=== PATIENT | female | born 1960 | race Caucasian/White ===

== ENCOUNTER → 2019-10-03 14:07 | Outpatient (BNVA) | payer BC, SELFPAY | PROVIDERS: Family Provider Family Medicine; Visit Provider Family Medicine | DX: R30.0 Dysuria (principal); M10.9 Gout, unspecified; M25.50 Pain in unspecified joint | CPT/HCPCS: 80053; 81000; 84550; 87077; 87086; 87186 ==

== ENCOUNTER → 2019-10-07 08:30 | Outpatient (BNVA) | payer BC, SELFPAY | PROVIDERS: Family Provider Family Medicine; Visit Provider Family Medicine | DX: I10 Essential (primary) hypertension (principal); R73.03 Prediabetes; M25.50 Pain in unspecified joint; B37.3 Candidiasis of vulva and vagina; E11.9 Type 2 diabetes mellitus without complications | CPT/HCPCS: 80053; 80061; 83036; 85025; 85651; 86140; 86431 ==

== ENCOUNTER 2019-11-10 09:59 | Outpatient (CLI) | payer BC, SELFPAY ==
--- NOTE | 2019-11-10 10:05 | XR_ITS ---
WS: [id number] ABDOMEN 1 VIEW(S) HISTORY: concern for kidney stone COMPARISON: None available. Normal bowel gas pattern. No suspicious calcifications or masses. No bone abnormality. Degenerative spondylitic changes in the lumbar spine. Mild bilateral hip joint arthritis. XR/XR KUB [id number] IMPRESSION: No renal or ureteral calcifications identified.
== END 2019-11-10 10:00 | disposition home or self-care (01) ==
PROVIDERS: Family Provider Family Medicine; PCP Family Medicine; Visit Provider Family Medicine
DX: R10.9 Unspecified abdominal pain (principal)
CPT/HCPCS: 74018

== ENCOUNTER 2019-11-11 15:07 | Emergency (ER) | payer BC, SELFPAY ==
[2019-11-11 15:11] VITALS: BP 192/101; PULSE 70; RESP 18; TEMP 36.5; O2SAT 96; BMI 48.7
[2019-11-11 15:18] VITALS: PULSE 18; O2SAT 97
--- NOTE | 2019-11-11 15:19 | W.ED.ABDPA2 ---
HPI - Abdominal Pain General: Chief Complaint: Abdominal Pain Stated Complaint: R SIDE PAIN Time Seen by Provider: 11/11/19 15:19 Source: patient Mode of arrival: ambulatory Limitations: no limitations History of Present Illness: HPI narrative: Patient comes in today for complaints of right side abdominal pain since Thursday. Patient was diagnosed with a possible kidney stone on Thursday and was started on nitrofurantoin and tamsulosin. Patient reports no improvement in pain and discomfort and was seen by her primary care yesterday who sent her for a KUB that noted no renal calculi. Patient was placed on some hydrocodone for pain but has not had much relief with the pain today with taking the hydrocodone. Patient appears mildly unwell. Patient appears in some moderate discomfort. Associated Symptoms: Reports nausea Review of Systems General: Reports: 10 or more systems reviewed and unremarkable except in HPI and below GI: Reports: abdominal pain and nausea [facility] ED PFSH: Medical History (Updated 11/11/19 @ 17:30 by SERGEI Rivera) Anxiety and depression Essential hypertension Gout Prediabetes Surgical History History of tonsillectomy Family History Other Hypertension Sarcoma Social History Smoking and tobacco status: former smoker Alcohol intake: never Physical Exam Const: COMMON NORMALS: no acute distress and patient oriented x3 GENERAL APPEARANCE: cooperative HENMT: COMMON NORMALS: normocephalic and Normal external nose present HEAD & SCALP: normal to inspection and normocephalic NOSE: Normal external nose present MOUTH: Normal oral and palatal mucosa present THROAT: posterior oropharynx normal Eye: GENERAL EYE: appearance normal, both eyes and all related structures Neck/C-Spine: COMMON NORMALS: full ROM Lymph: LYMPHATIC: no lymphadenopathy noted Chest: COMMONS NORMALS: normal inspection of the chest Resp: COMMON NORMALS: normal respiratory effort EFFORT & INSPECTION: Yes able to speak in complete sentences Cardio: COMMON NORMALS: regular rate and regular rhythm RATE: regular rate RHYTHM: regular rhythm GI: COMMON NORMALS: Soft to palpation AUSCULTATION: Yes normoactive bowel sounds PALPATION: Yes Soft to palpation and Yes Tenderness to palpation present (GI) Details: RLQ : COMMON NORMALS: Yes no CVA tenderness BLADDER/KIDNEY EXAM: Yes no CVA tenderness Back/Pelvis: COMMON NORMALS: no CVA tenderness and thoracic and lumbar spine normal to inspection Extremity: COMMON NORMALS: normal to inspection Neuro: COMMON NORMALS: patient oriented x3 and moves all extremities Psych: COMMON NORMALS: mental status grossly normal and cooperative Skin: COMMON NORMALS: no rashes or lesions noted GENERAL SKIN EXAM: no rashes or lesions noted Course ED course: 1639, patient is back from CT scan and made complaints of increased pain and nausea. Patient had had 4 of morphine prior to going to CT and reported that it improved her pain but it has come back since returning from the CT scan. Patient appears well. Patient appears in no acute distress. Vital Signs: Vital signs: Vital Signs Temperature 97.7 F 11/11/19 15:11 Pulse Rate 18 L 11/11/19 15:18 Respiratory Rate 18 11/11/19 17:01 Blood Pressure 192/101 11/11/19 15:11 Pulse Oximetry 97 11/11/19 15:18 MDM - Abdominal Pain MDM Narrative: Medical decision making narrative: Patient comes in today for complaints of right lower abdominal pain. On exam patient has tenderness in the right lower abdomen. Patient reports that she has been diagnosed with a kidney stone but none was noted on the KUB yesterday so she is concerned that something else may be going on. Respirations were even and lungs are clear to auscultation. Bowel sounds were positive. Patient had tenderness on palpation to the right lower quadrant. Differential diagnosis includes cholecystitis, appendicitis, renal calculi, urinary tract infection. CBC and CMP were insignificant. EKG noted a sinus rhythm without any ST elevation. CT scan with contrast noted a normal appendix and no other signs of infection. It was noted though patient had a 3.5 mm stone at the UVJ of the ureter to bladder on the right side. Reviewed exam with patient recommended continued treatment for renal calculi. We will contact case management for referral to urology. Patient was reassured and was discharged home with ketorolac for further pain control and ondansetron for nausea and vomiting. Lab Data: Labs: Lab Results 11/11/19 11/11/19 Range/Units 15:56 15:56 WBC 9.1 (4.0-10.0) 10^3/ uL RBC 4.96 (4.1-5.3) 10^6/u L Hgb 14.7 (11.5-15.3) g/dL Hct 45.6 (37.0-47.0) % MCV 91.9 (81-99) fL MCH 29.6 (28.0-34.0) pg MCHC 32.2 (30.0-36.0) g/dL RDW 13.2 (12.1-15.1) % Plt Count 229 (130-400) 10^3/c mm MPV 9.0 (7.4-10.4) fL Neut % (Auto) 77.8 % Lymph % (Auto) 11.5 % [place] % (Auto) 7.6 % Eos % (Auto) 2.6 % Baso % (Auto) 0.2 % Neut # (Auto) 7.1 (1.8-7.7) 10^3/u L Lymph # (Auto) 1.0 (0.8-4.8) 10^3/u L [place] # (Auto) 0.7 (0.2-0.9) 10^3/u L Eos # (Auto) 0.2 (0.0-0.8) 10^3/u L Baso # (Auto) 0.0 (0.0-0.1) 10^3/u L Nucleated RBC % (a uto) 0 % Nucleated RBCs # 0.0 /100WBC Sodium 137 (136-145) mmol/L Potassium 4.6 (3.5-5.1) mmol/L Chloride 98 (98-107) mmol/L Carbon Dioxide 26 (22-29) mmol/L Anion Gap 17.6 (5-19) BUN 17 (6-20) mg/dL Creatinine 1.0 H (0.5-0.9) mg/dL GFR Calculation 57.1 L (90-130) mL/min Glucose 111 (65-115) mg/dL Calculated Osmolal ity 281 L (285-295) mOsm/k g Calcium 9.4 (8.5-10.5) mg/dL Total Bilirubin 0.5 (0.15-1.2) mg/dL AST 22 (0-32) U/L ALT 21 (0-33) U/L Alkaline Phosphata se 88 (35-105) IU/L Total Protein 7.8 (6.6-8.7) g/dL Albumin 4.3 (3.5-5.2) g/dL Globulin 3.5 (1.3-4.6) g/dL Lipase 37 (13-60) U/L Discharge Plan Discharge Patient Disposition: Home, Self-Care Clinical Impression: Calculus of kidney Condition: Stable Prescriptions: New ketorolac 10 mg tablet 10 mg PO Q6H PRN (Reason: pain) Qty: 14 RF: 0 ondansetron HCl 4 mg tablet 4 mg PO Q8H PRN (Reason: nausea and vomiting) Qty: 10 RF: 0 No Action fluoxetine 40 mg capsule 40 mg PO DAILY Qty: 90 RF: 0 fluoxetine 20 mg capsule 20 mg PO DAILY Qty: 90 RF: 0 metformin 500 mg tablet extended release 24 hr 500 mg PO BID Qty: 180 RF: 0 carvedilol 25 mg tablet 25 mg PO BID Qty: 180 RF: 0 lisinopril 20 mg tablet 20 mg PO DAILY Qty: 90 RF: 0 tamsulosin [Flomax] 0.4 mg capsule 0.4 mg PO DAILY RF: 0 nitrofurantoin macrocrystal 100 mg capsule 100 mg PO BID RF: 0 hydrocodone-acetaminophen [[place]] 5-325 mg tablet 1 tab PO Q6H PRN (Reason: pain) 7 Days Qty: 28 RF: 0 allopurinol 100 mg tablet 100 mg PO DAILY Qty: 90 RF: 1 Discharge Orders: Discharge Order (Routine); Ordered 11/11/19 Ordered By: Aniket May Referrals: Crissy Howell DO [Primary Care Provider] - Discharge Diet: Usual diet Discharge Activity: Increase activity as tolerated Patient Instructions: Kidney Stones (ED) Activity Restrictions/Additional Instructions: Drink plenty of fluids. Activity as tolerated. Take medications as needed for pain and nausea. Monitor for fever. Return to the ER for high fever or worsening pain. Follow-up with primary care in 1 week. Case management will contact you on Thursday for urology follow-up. Coding Level of Care Code ED Water Taxi Captain for Stormy Fwd Exam Comprehensive
--- NOTE | 2019-11-11 15:48 | CTR_ITS ---
PROCEDURE INFORMATION: Exam: CT Abdomen And Pelvis With Contrast Exam date and time: 11/11/2019 4:23 PM Age: 58 years old Clinical indication: Abdominal pain; Localized; Right lower quadrant (rlq); Patient HX: C/O rlq/r flank pain since 11/06; Additional info: Rlq pain TECHNIQUE: Imaging protocol: Computed tomography of the abdomen and pelvis with intravenous contrast. Radiation optimization: All CT scans at this facility use at least one of these dose optimization techniques: automated exposure control; mA and/or kV adjustment per patient size (includes targeted exams where dose is matched to clinical indication); or iterative reconstruction. Contrast material: OMNI 300; Contrast volume: 95 ml; Contrast route: 20G; COMPARISON: CR XR KUB [id number] 11/10/2019 10:12 AM RADIATION DOSE METRICS: Total DLP: 1957.82 mGy-cm FINDINGS: Mediastinal space: A small hiatal hernia is present. Liver: Unremarkable.No mass. Gallbladder and bile ducts: Normal. No calcified stones. No ductal dilation. Pancreas: Normal. No ductal dilation. Spleen: Normal. No splenomegaly. Adrenals: Normal. No mass. Kidneys and ureters: There is mild to moderate right hydronephrosis. There is a 3.5 mm calculus right ureteral vesicle junction. No left hydronephrosis. There is punctate left nephrolithiasis. There is mild right perinephric fat stranding. Stomach and bowel: There is no evidence of intestinal perforation or obstruction. There is no evidence of colitis/diverticulitis. Appendix: A normal appendix is identified. Intraperitoneal space: Unremarkable. No free air. No significant fluid collection. Vasculature: Unremarkable.No abdominal aortic aneurysm. Lymph nodes: Unremarkable.No enlarged lymph nodes. Bladder: There is nonspecific bladder wall thickening. This may be related to incomplete distention. Reproductive: Uterus, ovaries and adnexa have an appropriate appearance. Bones/joints: There are moderate degenerative changes in the spine. There is a vacuum disc at L5-S1. Soft tissues: There is a fat-containing umbilical hernia. CT/CT abdomen pelvis w con* [id number] IMPRESSION: 1. Mild to moderate right hydronephrosis with 3.5 mm calculus at the right ureteral vesicle junction. 2. No bowel thickening or inflammatory changes. Unremarkable appendix. Radiation Dose CTDIVOL = (mGy): DLP = 1957.82 (mGy-cm)
[2019-11-11] MEDS: ondansetron 2 mg/ML SDV 2 mL 4 MG IVP ×2 (15:56→17:01)
[2019-11-11 15:57] VITALS: RESP 18
[2019-11-11] MEDS: morphine 4 mg/mL SDV 1 mL IVP ×2 (15:57→17:01)
[2019-11-11] MEDS: sodium chloride 0.9% 500 ML 999 ML IV (15:57)
[2019-11-11 16:03] LABS: Basophils % 0.2 %; Eosinophils # 0.2 10^3/uL (0.0-0.8); Eosinophils % 2.6 %; Hematocrit 45.6 % (37.0-47.0); Hemoglobin 14.7 g/dL (11.5-15.3); Lymphocytes % 11.5 %; Mean Corpuscular HGB Conc 32.2 g/dL (30.0-36.0); Mean Corpuscular Hemoglobin 29.6 pg (28.0-34.0); Mean Corpuscular Volume 91.9 fL (81-99); Monocytes # 0.7 10^3/uL (0.2-0.9); Monocytes % 7.6 %; Neutrophils # 7.1 10^3/uL (1.8-7.7); Neutrophils % 77.8 %; Nucleated Red Blood Cells % 0 %; Platelet Count 229 10^3/cmm (130-400); Red Blood Count 4.96 10^6/uL (4.1-5.3); Red Cell Distribution Width 13.2 % (12.1-15.1); White Blood Count 9.1 10^3/uL (4.0-10.0)
[2019-11-11] MEDS: iohexol 300 mg/mL 100 mL Btl IV (16:30)
--- NOTE | 2019-11-11 16:46 | ECG_ITS ---
Measurements Intervals [place] Rate: 128 P: GA: 0 QRS: 52 QRSD: 84 T: 12 QT: 299 QTc: 438 ATRIAL FIBRILLATION WITH RAPID VENTRICULAR RESPONSE ABNORMAL RHYTHM ECG No previous ECG available for comparison Electronically Signed On 11-12-2019 8:04:33 CDT by Alyse Gottlieb M.D. [email or web address]
[2019-11-11 17:01] VITALS: RESP 18
[2019-11-11] MEDS: ketorolac 30 mg/mL INJ 15 MG IVP (17:01)
[2019-11-11 17:25] LABS: Alanine Aminotransferase 21 U/L (0-33); Albumin Level 4.3 g/dL (3.5-5.2); Alkaline Phosphatase 88 IU/L (35-105); Anion Gap 17.6 (5-19); Aspartate Amino Transferase 22 U/L (0-32); Blood Urea Nitrogen 17 mg/dL (6-20); Calcium 9.4 mg/dL (8.5-10.5); Carbon Dioxide 26 mmol/L (22-29); Chloride 98 mmol/L (98-107); Globulin 3.5 g/dL (1.3-4.6); Glomerular Filtration Rate 57.1 mL/min (90-130); Glucose 111 mg/dL (65-115); Lipase 37 U/L (13-60); Osmolality Calculated 281 mOsm/kg (285-295); Potassium 4.6 mmol/L (3.5-5.1); Sodium 137 mmol/L (136-145); Total Bilirubin 0.5 mg/dL (0.15-1.2); Total Protein 7.8 g/dL (6.6-8.7)
[2019-11-11 17:37] VITALS: BP 148/74; PULSE 69; RESP 18; O2SAT 94
[2019-11-11 17:42] LABS: Troponin(5th) Baseline 10 ng/L (0-10)
--- NOTE | 2019-11-14 10:55 | DCPLANNER ---
water/wastewater project manager had message to schedule a follow up appointment for patient with Dr. Landaverde. water/wastewater project manager called the office of Dr. Landaverde, spoke with Kathrin, gave clinic patients information. water/wastewater project manager was told that patients information would be printed and given to Jeanine for review. Clinic will call patient with appointment information.
--- NOTE | 2019-11-18 15:25 | DCPLANNER ---
Patient had a follow up appointment scheduled for 11.15.19, patient did attend the appointment.
== END 2019-11-11 17:37 | disposition home or self-care (01) ==
PROVIDERS: Emergency Provider Nurse Practitioner Family; Family Provider Family Medicine; PCP Family Medicine
DX: N20.0 Calculus of kidney (principal); I10 Essential (primary) hypertension; Z87.891 Personal history of nicotine dependence
CPT/HCPCS: 12345; 74177; 80053; 83690; 84484; 85025; 93005; 96374; 96375; 96376; 99283; J1885; J2270; J2405; J7040; Q9967

== ENCOUNTER 2019-11-15 07:47 | Outpatient (CLI) | payer BC, SELFPAY ==
--- NOTE | 2019-11-15 07:53 | XR_ITS ---
WS: [id number] ABDOMEN 1 VIEW(S) HISTORY: Stones COMPARISON: 11/11/2019 and 11/10/2019 Normal bowel gas pattern. There are numerous calcifications in the pelvis. Distribution and number are similar to the radiograp h of 11/10/2019. Advanced changes of osteophytosis throughout the lumbar spine. Bilateral hip joint arthritis. XR/XR KUB [id number] IMPRESSION: 1. Numerous calcifications in the pelvis. Distribution and number are similar to 11/10/2019. These are probably phleboliths but one of these calcifications cou ld be the calcification described in the distal RIGHT ureter on the CT of 020. 2. No renal calcifications.
== END 2019-11-15 07:48 | disposition home or self-care (01) ==
LOC: RAD 07:50
PROVIDERS: Family Provider Family Medicine; PCP Family Medicine; Visit Provider Urology
DX: N20.0 Calculus of kidney (principal)
CPT/HCPCS: 74018; 81001; 82365

== ENCOUNTER → 2020-01-11 11:19 | Outpatient (BNVA) | payer BC, SELFPAY | PROVIDERS: Family Provider Family Medicine; PCP Family Medicine; Visit Provider Family Medicine | DX: I10 Essential (primary) hypertension (principal) | CPT/HCPCS: 80048; 82043 ==

== ENCOUNTER → 2020-07-10 09:09 | Outpatient (BNVA) | payer BC, SELFPAY | PROVIDERS: Family Provider Family Medicine; PCP Family Medicine; Visit Provider Family Medicine | DX: I10 Essential (primary) hypertension (principal); R73.03 Prediabetes; K21.9 Gastro-esophageal reflux disease without esophagitis; R23.2 Flushing | CPT/HCPCS: 80053; 80061; 83036; 84443; 85025 ==

== ENCOUNTER 2020-11-14 08:06 | Outpatient (CLI) | payer BC, SELFPAY ==
--- NOTE | 2020-11-14 08:15 | XR_ITS ---
WS: [id number] KUB, AP view, 11/14/2020 Clinical Data: N20.0 - Calculus of kidney Comparison: KUB, 11/15/2019. Findings: No abnormal intraabdominal masses or calcifications are seen. There is no dilatated small bowel or ev idence of obstruction. There is fecal material in colon gas obscuring detail over the kidneys. There is severe osteoarthriti c change of the lumbar spine. Multiple phleboliths are in the true pelvis. Osteoarthritic change of b oth hips is seen. XR/XR KUB [id number] Impression: 1. Negative for renal calcifications. 2. No change in pelvic calcifications.
== END 2020-11-14 08:07 | disposition home or self-care (01) ==
PROVIDERS: PCP Family Medicine; Visit Provider Urology
DX: N20.0 Calculus of kidney (principal)
CPT/HCPCS: 74018; 81003

== ENCOUNTER → 2021-04-09 10:23 | Outpatient (BNVA) | payer BC, SELFPAY | PROVIDERS: PCP Family Medicine; Visit Provider Family Medicine | DX: I10 Essential (primary) hypertension (principal); M10.9 Gout, unspecified; F41.9 Anxiety disorder, unspecified; Z12.11 Encounter for screening for malignant neoplasm of colon; F32.9 Major depressive disorder, single episode, unspecified; M25.50 Pain in unspecified joint | CPT/HCPCS: 80053; 80061; 82043; 84550; 85025 ==

== ENCOUNTER → 2021-06-17 16:47 | Outpatient (BNVA) | payer BC, SELFPAY | PROVIDERS: PCP Family Medicine; Visit Provider Surgery | DX: Z01.812 Encounter for preprocedural laboratory examination (principal); Z20.822 Contact with and (suspected) exposure to COVID-19 | CPT/HCPCS: 87635 ==

== ENCOUNTER 2021-06-28 14:18 | Outpatient (CLI) | payer BC, SELFPAY ==
--- NOTE | 2021-06-28 14:30 | MM_ITS ---
WS: [id number] Exam: [place] [id number] Date/Time of Exam: 06/28/2021 2:31 PM Reason For Exam: mammogram VIEWS: MLO and CC views both breasts. Comparison made with prior exam of 09/10/2016, 03/02/2019 and 08/14/2015 Findings: There was no sign of mass, architectural distortion or suspicious calcification in either breast. Fa [place]ty MM/[place] [id number] Impression: BI-RADS: 2-Benign FOLLOW-UP: 1 Year Follow-up This mammogram was also analyzed by the Computer Aided Detection System R2 Imag e Esthetician Permanent Makeup Artist.
== END 2021-06-28 14:19 | disposition home or self-care (01) ==
LOC: RADSHAW 14:22
PROVIDERS: PCP Family Medicine; Visit Provider Family Medicine
DX: Z12.31 Encounter for screening mammogram for malignant neoplasm of breast (principal)
CPT/HCPCS: 77067

== ENCOUNTER → 2021-07-19 07:59 | Outpatient (BNVA) | payer BC, SELFPAY | PROVIDERS: PCP Family Medicine; Visit Provider Surgery | DX: Z20.822 Contact with and (suspected) exposure to COVID-19 (principal); Z11.52 Encounter for screening for COVID-19 | CPT/HCPCS: 87635 ==

== ENCOUNTER 2021-07-24 06:49 | Day surgery (SDC) | payer BC, SELFPAY ==
[2021-07-18 08:58] VITALS: BMI 39.9
--- NOTE | 2021-07-24 07:01 | W.PM.OPSFHP ---
Same Day Surgery H&P Indication for Procedure/HPI DATE OF PROCEDURE: July 24, 2021 CHIEF COMPLAINT/INDICATIONFOR SURGICAL PROCEDURE: screening PREOP DIAGNOSIS: diagnostic PLANNED PROCEDURE: Operation Date: 07/24/21 08:00 Proposed Procedures p Colonoscopy 24405 Z12.11(Not Applicable) - Vin Salter MD Medications/Allergies* Home Medications Medication Instructions Recorded Confirmed Type multivitamin,[id number] 1 tab PO DAILY 11/15/19 07/18/21 History (Complete Multivitamin) magnesium 250 mg tablet 250 mg PO DAILY 01/11/20 07/18/21 History biotin 5,000 mcg disintegrating 10,000 mcg PO DAILY 11/14/20 07/18/21 History tablet niacin 100 mg tablet 100 mg PO DAILY 11/14/20 07/18/21 History cetirizine 10 mg capsule (Zyrtec) 10 mg PO DAILY PRN 04/09/21 07/18/21 History aspirin 81 mg capsule 81 mg PO DAILY 06/17/21 07/18/21 History Allergies/Adverse Reactions Allergy/AdvReac Type Severity Reaction Status Date / Time sulfamethoxazole AdvReac Mild Unknown Verified 07/19/21 11:13 [From Bactrim] trimethoprim [From Bactrim] AdvReac Mild Unknown Verified 07/19/21 11:13 Pertinent History/Comorbid Conditions* Medical History (Updated 04/09/21 @ 10:03 by Crissy Howell DO) Anxiety and depression Essential hypertension Gout Prediabetes Right distal ureteral calculus Surgical History (Updated 01/11/20 @ 10:57 by Crissy Howell DO) H/O: knee surgery History of tonsillectomy Family History (Updated 09/07/19 @ 10:10 by Mickie Pike LPN) Sarcoma Hypertension Social History Smoking and tobacco status: former smoker Alcohol intake: never Marital status: Current occupational status: retired History of recent travel: No Pertinent Exam Findings alert, oriented x 3 and regular rate & rhythm Recommendations Surgery/Procedure today Coding Level of Care Code Acute Parking Enforcement Officer for Stormy Weaver
--- NOTE | 2021-07-24 07:28 | ANES.PREANE2 ---
Pre-Anesthetic Assessment Height/Weight: Height 1.75 m Weight 122.47 kg Preop Diagnosis: diagnostic Operation Date: 07/24/21 08:00 Proposed Procedures p Colonoscopy 19316 Z12.11(Not Applicable) - Vin Salter MD Familial anesthetic complications: None Was Beta Yamilka taken within 24 hours: Yes Was Clonidine taken within 24 hours: N/A Social No alcohol and No tobacco Exam alert, oriented x 3, clear to auscultation bilaterally and regular rate & rhythm Airway Submandibular: within normal limits Cervical ROM: Other (Limited extension) Mallampati: Class III Dentition: full History/ROS No significant complaints Pulmonary None reported CV/HEM Hypertension Hepatic None reported Ureteral calculus GI Gastroesophageal Reflux Disease and None reported Metabolic Pre diabetes Musc/skel Gout Neuropsych Anxiety and Depression Anesthetic Plan ASA status: 2 Anesthesia: Anesthesia Evaluation and General Other: I discussed with the patient risks, goals, and benefits of MAC and general anesthesia. We discussed spectrum of MAC anesthesia including conversion to general as well as possibility of recall of intraoperative stimuli including discomfort/pain. Patient agrees to proceed with MAC. Risk of > 500 ml blood loss (7ml/kg in children): No Medications/Allergies Home Medications Medication Instructions Recorded Confirmed Last Taken Type multivitamin,zx-kuex-yuhocvjq 1 tab PO DAILY 11/15/19 07/18/21 07/18/21 History (Complete Multivitamin) magnesium 250 mg tablet 250 mg PO DAILY 01/11/20 07/18/21 07/18/21 History biotin 5,000 mcg disintegrating 10,000 mcg PO DAILY 11/14/20 07/18/21 07/18/21 History tablet niacin 100 mg tablet 100 mg PO DAILY 11/14/20 07/18/21 07/18/21 History omeprazole 40 mg capsule,delayed 40 mg PO DAILY #90 cap 03/19/21 07/18/21 07/18/21 Rx release allopurinol 100 mg tablet See Rx Instructions .ROUTE 04/09/21 07/18/21 07/18/21 Rx .COMPLEX #90 tab cetirizine 10 mg capsule (Zyrtec) 10 mg PO DAILY PRN 04/09/21 07/18/21 07/18/21 History fluoxetine 20 mg capsule 20 mg PO BEDTIME #90 cap 04/09/21 07/18/21 07/17/21 Rx fluoxetine 40 mg capsule 40 mg PO DAILY #90 cap 04/09/21 07/18/21 07/18/21 Rx lisinopril 40 mg tablet 40 mg PO DAILY #90 tab 04/09/21 07/18/21 07/18/21 Rx aspirin 81 mg capsule 81 mg PO DAILY 06/17/21 07/18/21 07/18/21 History carvedilol 25 mg tablet See Rx Instructions .ROUTE 06/24/21 07/18/21 07/18/21 Rx .COMPLEX #145 tab Allergies Allergy/AdvReac Type Severity Reaction Status Date / Time sulfamethoxazole AdvReac Mild Unknown Verified 07/19/21 11:13 [From Bactrim] trimethoprim [From Bactrim] AdvReac Mild Unknown Verified 07/19/21 11:13 [facility] Anesthesia Medical History Anxiety and depression Essential hypertension Gout Prediabetes Right distal ureteral calculus Surgical History H/O: knee surgery History of tonsillectomy Family History Other Hypertension Sarcoma Social History Smoking and tobacco status: former smoker Alcohol intake: never Marital status: Current occupational status: retired History of recent travel: No Data Anesthesia Cardiac Studies: No Data to Display
[2021-07-24 07:41] VITALS: BP 180/104; PULSE 68; RESP 18; TEMP 36.2; O2SAT 96
[2021-07-24] MEDS: sodium chloride 0.9% 1,000 ML 30 ML IV (07:51)
[2021-07-24 08:24] VITALS: BP 127/80; PULSE 68; RESP 18; TEMP 36.9; O2SAT 94
[2021-07-24 08:40] VITALS: BP 119/76; PULSE 56; RESP 18; O2SAT 94
--- NOTE | 2021-07-24 15:42 | ANE.PACU2 ---
Inpatient post-anesthesia follow up: Airway intact: Yes Vital signs: Temperature 98.4 F Pulse Rate 56 Respiratory Rate 18 Blood Pressure 119/76 Pulse Oximetry 94 Oxygen Delivery Me thod Room Air Oxygen Flow Rate Fraction of Inspir ed Oxygen Hydration adequate: Yes Nausea and vomiting: No Pain level: 1 Mental status: Baseline
== END 2021-07-24 08:55 | disposition home or self-care (01) ==
PROVIDERS: PCP Family Medicine; Visit Provider Surgery
PROC: 0DJD8ZZ Inspection of Lower Intestinal Tract, Via Natural or Artificial Opening Endoscopic (ICD-10-PCS; CPT 45378; principal; 2021-07-24 08:00)
DX: Z12.11 Encounter for screening for malignant neoplasm of colon (principal); K57.30 Diverticulosis of large intestine without perforation or abscess without bleeding; K64.9 Unspecified hemorrhoids; K64.8 Other hemorrhoids; I10 Essential (primary) hypertension; K21.9 Gastro-esophageal reflux disease without esophagitis; R73.03 Prediabetes; F41.9 Anxiety disorder, unspecified; F32.9 Major depressive disorder, single episode, unspecified
CPT/HCPCS: 45378; J2704; J7030

== ENCOUNTER → 2021-09-05 10:06 | Outpatient (BNVA) | payer BC, SELFPAY | PROVIDERS: PCP Family Medicine; Visit Provider Family Medicine | DX: E78.5 Hyperlipidemia, unspecified (principal) | CPT/HCPCS: 80053 ==

== ENCOUNTER 2021-11-11 11:32 | Outpatient (CLI) | payer BC, SELFPAY ==
--- NOTE | 2021-11-11 11:44 | XRR_ITS ---
PROCEDURE INFORMATION: Exam: XR Left Hip Exam date and time: 11/11/2021 11:53 AM Age: 60 years old Clinical indication: Hip pain; Left hip; Additional info: Chronic left hip pain TECHNIQUE: Imaging protocol: XR Left hip. Views: 2 or 3 views hip with pelvis when performed. COMPARISON: CT abdomen pelvis w con* [id number] 11/11/2019 4:21 PM FINDINGS: Bones/joints: Sclerotic density is seen in the inferior aspect of the acetabulum consistent with osteoarthritis. No acute fracture. Soft tissues: Unremarkable. XR/XR hip LT 2-3V wo/w pel* [id number] IMPRESSION: No acute bone abnormality..
== END 2021-11-11 11:33 | disposition home or self-care (01) ==
PROVIDERS: PCP Family Medicine; Visit Provider Family Medicine
DX: M25.552 Pain in left hip (principal); G89.29 Other chronic pain
CPT/HCPCS: 73502; 80053; 85025; 85651; 86038; 86140; 86200; 86431

== ENCOUNTER 2021-11-14 08:22 | Outpatient (CLI) | payer BC, SELFPAY ==
--- NOTE | 2021-11-14 08:15 | XR_ITS ---
WS: [id number] Exam: XR KUB [id number] Date/Time of Exam: 11/14/2021 8:15 AM Reason For Exam: URETERAL CALCULUS No bowel obstruction or free air. No sign of organ enlargement. Numerous nonspecific pelvic calcifica tions probably phleboliths. Degenerative changes of the lumbar spine and hips. Moderate amount of ret ained stool in the colon. XR/XR KUB [id number] IMPRESSION: 1. No acute abdominal finding.
== END 2021-11-14 08:23 | disposition home or self-care (01) ==
PROVIDERS: PCP Family Medicine; Visit Provider Urology
DX: N20.1 Calculus of ureter (principal)
CPT/HCPCS: 74018; 81003

== ENCOUNTER → 2021-12-24 09:54 | Outpatient (BNVA) | payer BC, SELFPAY | PROVIDERS: PCP Family Medicine; Referring Provider Family Medicine; Visit Provider Internal Medicine | DX: M79.641 Pain in right hand (principal); M79.642 Pain in left hand; L40.9 Psoriasis, unspecified; M16.9 Osteoarthritis of hip, unspecified; R76.8 Other specified abnormal immunological findings in serum | CPT/HCPCS: 36415; 72202; 73120; 85651; 86140; 86200; 86480; 86704; 86803; 87340 ==

== ENCOUNTER → 2022-01-21 10:53 | Outpatient (BNVA) | payer BC, SELFPAY | PROVIDERS: PCP Family Medicine; Visit Provider Family Medicine | DX: M25.50 Pain in unspecified joint (principal); R00.2 Palpitations; E78.5 Hyperlipidemia, unspecified; R73.03 Prediabetes; F41.9 Anxiety disorder, unspecified; F32.9 Major depressive disorder, single episode, unspecified | CPT/HCPCS: 80061; 83036 ==

== ENCOUNTER 2022-02-13 10:51 | Outpatient (CLI) | payer BC, SELFPAY ==
--- NOTE | 2022-02-13 11:00 | MR_ITS ---
WS: [id number] MRI LEFT HIP without CONTRAST. COMPARISON: LEFT hip radiograph 11/11/2021 Multiplanar, multisequence imaging is performed without contrast. Moderate narrowing of the hip joint. Mild diffuse thinning of the cartilage with a few subchondral cy stic changes and cortical irregularity involving the femoral head. Small osteophytes extend from the superior lateral acetabulum. No fracture or marrow edema. There is a very small amount of fluid surro unding the femoral head. Moderate size osteophyte along the inferior surface of the acetabulum is enc roaching upon the hip joint. This is asymmetric to the RIGHT hip joint. There is a moderate amount of fluid surrounding this osteophyte along the inferior LEFT hip joint. This osteophyte measures 15 x 4 mm. Probably causing some discomfort due to the increased fluid. SI joints are negative. No erosions or increased T2 signal. Very minimal narrowing of the RIGHT hip j oint. This study is not adequate to exclude a labral tear due to body habitus. MR/MR hip LT wo con* [id number] IMPRESSION: 1. Moderate osteoarthritic changes involving the RIGHT hip. 2. Small but increased amount of fluid in the LEFT hip joint. The fluid is ass ociated with an osteophyte along the posterior surface of the joint which appea rs contiguous with the acetabulum. Likely causing acute inflammatory reaction. To confirm this is not a loose intra-articular body CT evaluation may be worthw hile of the LEFT hip.
== END 2022-02-13 10:52 | disposition home or self-care (01) ==
PROVIDERS: PCP Family Medicine; Visit Provider Internal Medicine
DX: M25.752 Osteophyte, left hip (principal); M25.552 Pain in left hip
CPT/HCPCS: 73721

== ENCOUNTER → 2022-04-07 08:09 | Outpatient (BNVA) | payer BC, SELFPAY | PROVIDERS: PCP Family Medicine; Referring Provider Anesthesiology Pain Medicine; Visit Provider Student in an Organized Health Care Education/Training Program | DX: E66.01 Morbid (severe) obesity due to excess calories (principal); R73.03 Prediabetes; M16.0 Bilateral primary osteoarthritis of hip | CPT/HCPCS: 73522; 73523 ==

== ENCOUNTER 2022-05-27 10:02 | Outpatient (CLI) | payer BC, SELFPAY ==
--- NOTE | 2022-05-27 11:15 | XR_ITS ---
WS: [id number] Exam: XR KUB [id number] Date/Time of Exam: 05/27/2022 11:15 AM Reason For Exam: UROLITHIASIS Comparison 11/14/2021. No bowel obstruction or free air. No sign of organ enlargement. No calcifications noted in the region of the kidneys. Numerous phleboliths in the pelvis. Degenerative change and marked spondylosis of th e visualized thoracic and lumbar spine. XR/XR KUB [id number] IMPRESSION: 1. No acute abdominal process.
== END 2022-05-27 10:03 | disposition home or self-care (01) ==
PROVIDERS: PCP Family Medicine; Visit Provider Urology
DX: N20.9 Urinary calculus, unspecified (principal)
CPT/HCPCS: 74018; 81003

== ENCOUNTER → 2022-06-12 10:25 | Outpatient (BNVA) | payer BC, SELFPAY | PROVIDERS: PCP Family Medicine; Visit Provider Internal Medicine | DX: M16.9 Osteoarthritis of hip, unspecified (principal); R76.8 Other specified abnormal immunological findings in serum | CPT/HCPCS: 36415; 80053; 85025; 85651; 86140 ==

== ENCOUNTER 2022-07-22 15:49 | Outpatient (CLI) | payer BC, SELFPAY ==
--- NOTE | 2022-07-22 16:37 | XR_ITS ---
WS: [id number] Lateral views of cervical spine in the flexion, extension and neutral positions. 07/22/2022 Clinical Data: M16.9 - Osteoarthritis of hip, unspecified Comparison: None. Findings: There is a fusion of the C3 and C4 vertebral bodies which may be congenital. There is anterior osteoa rthritis at C5-C6. No compression fractures are seen. There is no prevertebral soft tissue swelling. On flexion and extension there is no limitation of motion or subluxation. XR/XR cervical spine fl/ex [id number] Impression: 1. 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 2. Osteoarthritis C5-C6 3. Negative for limitation of motion or subluxation on flexion or extension.
== END 2022-07-22 15:50 | disposition home or self-care (01) ==
LOC: RAD 15:52
PROVIDERS: PCP Family Medicine; Visit Provider Internal Medicine
DX: M47.812 Spondylosis without myelopathy or radiculopathy, cervical region (principal)
CPT/HCPCS: 72040

== ENCOUNTER 2022-12-16 07:52 | Outpatient (CLI) | payer BC, SELFPAY ==
--- NOTE | 2022-12-16 08:45 | MR_ITS ---
WS: [id number] MRI LUMBAR SPINE NONCONTRAST TECHNIQUE: Sagittal T1, T2 and STIR imaging. Axial T1 and T2 imaging. CLINICAL INFORMATION: M54.5 - Low back pain COMPARISON: None. FINDINGS: Mild lumbar curve. No acute compression. No high-grade central canal stenosis. Mild annular bulging L 3-L4, L4-L5 and L5-S1 with tiny annular fissures L3-L4 and L4-L5. L1-L2: Mild annular bulging. Mild facet arthropathy. Mild RIGHT foraminal narrowing. LEFT foramen is patent. L2-L3: Mild annular bulging. Mild to moderate facet arthropathy. Mild RIGHT and no significant LEFT f oraminal narrowing. L3-L4: Mild disc bulging with moderate central canal stenosis. Impingement on traversing L4 nerve monica ts bilaterally. Moderate facet arthropathy. Mild bilateral foraminal narrowing. L4-L5: Mild annular bulging with moderate to severe central canal stenosis. Impingement traversing L5 nerve roots. Moderate facet arthropathy. Small annular fissure. Mild LEFT greater than RIGHT foramin al narrowing. L5-S1: Mild annular bulging with slight impingement on traversing LEFT greater than RIGHT S1 nerve ro ots. LEFT eccentric disc osteophytic ridging with moderate LEFT and mild RIGHT foraminal narrowing. M oderate facet arthropathy. Visualized pelvic bony structures: Normal. Paravertebral soft tissues: Normal. MR/MR lumbar spine wo con* [id number] IMPRESSION: 1. Mild lumbar curve. No acute compression. 2. Moderate central canal stenosis L3-L4 and moderate to severe central canal stenosis L4-L5. 3. Disc bulge L5-S1 with slight impingement traversing LEFT greater than RIGHT S1 nerve roots. 4. Moderate foraminal narrowing LEFT L5-S1. 5. Mild bilateral foraminal narrowing L3-L4 and L4-L5.
== END 2022-12-16 07:53 | disposition home or self-care (01) ==
PROVIDERS: PCP Family Medicine; Visit Provider Anesthesiology Pain Medicine
DX: M54.16 Radiculopathy, lumbar region (principal); M51.37 Other intervertebral disc degeneration, lumbosacral region; M48.07 Spinal stenosis, lumbosacral region
CPT/HCPCS: 72148

== ENCOUNTER → 2023-01-01 13:50 | Outpatient (BNVA) | payer BC, SELFPAY | PROVIDERS: PCP Family Medicine; Visit Provider Anesthesiology Pain Medicine | DX: M25.559 Pain in unspecified hip; M16.0 Bilateral primary osteoarthritis of hip; R76.8 Other specified abnormal immunological findings in serum; M25.50 Pain in unspecified joint | CPT/HCPCS: 77002 ==

== ENCOUNTER → 2023-03-10 14:45 | Outpatient (BNVA) | payer BC, SELFPAY | PROVIDERS: PCP Family Medicine; Visit Provider Internal Medicine | DX: Z79.899 Other long term (current) drug therapy; R76.8 Other specified abnormal immunological findings in serum; M16.9 Osteoarthritis of hip, unspecified; M54.2 Cervicalgia | CPT/HCPCS: 36415; 80053; 85025; 85651; 86140 ==

== ENCOUNTER → 2023-07-17 10:12 | Outpatient (BNVA) | payer BC, SELFPAY | PROVIDERS: PCP Family Medicine; Visit Provider Family Medicine | DX: E78.5 Hyperlipidemia, unspecified (principal) | CPT/HCPCS: 80061 ==

== ENCOUNTER → 2023-07-21 11:57 | Outpatient (BNVA) | payer BC, SELFPAY | PROVIDERS: PCP Family Medicine; Visit Provider Anesthesiology Pain Medicine | DX: M17.11 Unilateral primary osteoarthritis, right knee (principal) | CPT/HCPCS: 73562 ==

== ENCOUNTER → 2023-11-17 14:39 | Outpatient (BNVA) | payer BC, SELFPAY | PROVIDERS: PCP Family Medicine; Visit Provider Registered Nurse Neonatal Intensive Care | DX: R39.9 Unspecified symptoms and signs involving the genitourinary system (principal) | CPT/HCPCS: 81000 ==

== ENCOUNTER → 2023-11-24 10:24 | Outpatient (BNVA) | payer BC, SELFPAY | PROVIDERS: PCP Family Medicine; Visit Provider Family Medicine | DX: I10 Essential (primary) hypertension (principal); B35.1 Tinea unguium | CPT/HCPCS: 80053 ==

== ENCOUNTER → 2023-11-25 13:17 | Outpatient (BNVA) | payer BC, SELFPAY | PROVIDERS: PCP Family Medicine; Visit Provider Anesthesiology Pain Medicine | DX: M16.9 Osteoarthritis of hip, unspecified (principal); M25.559 Pain in unspecified hip | CPT/HCPCS: 77002 ==

== ENCOUNTER 2024-01-26 08:26 | Outpatient (CLI) | payer BC, SELFPAY ==
--- NOTE | 2024-01-26 08:30 | MM_ITS ---
WS: [id number] BILATERAL SCREENING DIGITAL TOMOSYNTHESIS MAMMOGRAM WITH CAD HISTORY: Z12.39 - Encounter for other screening for malignant neop... COMPARISON: 06/28/2021, 03/02/2019 Bilateral CC and MLO views with tomosynthesis and synthetic mammography submitted. Computer aided det ection analyzed. Breast composition: There are scattered areas of fibroglandular density. No suspicious masses, microc alcifications or architectural distortion. Benign calcifications. Difficult examination. The axillary tails are not included. MM/[place] [id number] IMPRESSION: BI-RADS: 2-Benign FOLLOW UP: 1 Year Follow-up Limited mammogram. Incomplete evaluation of the axillary tails.
== END 2024-01-26 08:27 | disposition home or self-care (01) ==
LOC: RAD 08:26
PROVIDERS: PCP Family Medicine; Visit Provider Family Medicine
DX: Z12.31 Encounter for screening mammogram for malignant neoplasm of breast (principal)
CPT/HCPCS: 77063; 77067

== ENCOUNTER 2024-02-22 12:24 | Outpatient (CLI) | payer BC, SELFPAY ==
[2024-02-22 13:24] LABS: Basophils % 0.3 %; Eosinophils # 0.1 10^3/uL (0.0-0.8); Hematocrit 42.6 % (36-47); Lymphocytes # 1.1 10^3/uL (0.8-4.8); Mean Corpuscular HGB Conc 32.9 g/dL (30-55); Mean Corpuscular Hemoglobin 32.1 pg (27-33); Mean Corpuscular Volume 97.7 fl (85-98); Mean Platelet Volume 9.3 fL (7.4-10.4); Monocytes # 0.4 10^3/uL (0.2-0.9); Monocytes % 6.2 %; Neutrophils # 4.73 10^3/uL (1.8-7.7); Nucleated Red Blood Cells % 0 %; Platelet Count 171 10^3/cmm (157-399); Red Blood Count 4.36 10^6/uL (3.85-5.65); Red Cell Distribution Width 12.9 % (12.1-15.1)
[2024-02-22 13:43] LABS: Alanine Aminotransferase 15 U/L (0-33); Albumin Level 3.9 g/dL (3.5-5.2); Alkaline Phosphatase 71 U/L (35-105); Aspartate Amino Transferase 18 U/L (0-32); Globulin 2.8 g/dL (1.3-4.6); Glomerular Filtration Rate 84.8 mL/min (90-130); Total Bilirubin 0.4 mg/dL (0.15-1.2); Total Protein 6.7 g/dL (6.6-8.7)
== END 2024-02-22 12:25 | disposition home or self-care (01) ==
LOC: LAB 12:25
PROVIDERS: PCP Family Medicine; Visit Provider Internal Medicine Rheumatology
DX: M79.641 Pain in right hand (principal); M79.642 Pain in left hand; R76.8 Other specified abnormal immunological findings in serum
CPT/HCPCS: 36415; 80076; 82565; 85025; 86140

== ENCOUNTER 2024-05-31 08:38 | Outpatient (CLI) | payer BC, SELFPAY ==
--- NOTE | 2024-05-31 08:39 | US_ITS ---
WS: [id number] RENAL ULTRASOUND HISTORY: HYDRONEPHROSIS OF LEFT KIDNEY COMPARISON: CT 11/11/2019 TECHNIQUE: 2-D and color Doppler imaging of the kidney submitted. Right kidney: 11.3 cm x 5.0 cm x 5.9 cm. Cortex: 1.1 cm Normal echogenicity with no hydronephrosis or mass. Left kidney: 10.8 cm x 6.3 cm x 6.0 cm. Cortex: 1.4 cm Normal size kidney. There are few small cystic areas in the central renal pelvis. The calyces are not dilated. On a prior CT similar findings were noted from 2019. Favor these changes are probably due t o parapelvic cysts and not hydronephrosis. Aorta: Normal. Urinary Bladder: Not distended. US/US renal BI* [id number] IMPRESSION: 1. Normal RIGHT kidney. No hydronephrosis. 2. Normal size LEFT kidney. Several central cystic masses. Favor parapelvic cy sts over hydronephrosis. If there is clinical concern for hydronephrosis a foll ow-up CT with IV contrast to evaluate renal excretion can be obtained.
== END 2024-05-31 08:39 | disposition home or self-care (01) ==
LOC: RAD 08:38
PROVIDERS: PCP Family Medicine; Visit Provider Nurse Practitioner Family
DX: Q61.02 Congenital multiple renal cysts (principal)
CPT/HCPCS: 76770

== ENCOUNTER 2024-06-20 09:52 | Outpatient (CLI) | payer BC, SELFPAY ==
--- NOTE | 2024-06-20 09:54 | XR_ITS ---
WS: [id number] XR shoulder RT min 2V* [id number] REASON FOR EXAM: M25.511 - Pain in right shoulder FINDINGS: No fracture or focal bone lesion. The acromioclavicular joint is intact with moderate subchondral sclerosis and osteophytosis. The glenohumeral joint space is not well demonstrated. There is mild subchondral sclerosis of the gle noid and mild to moderate osteophytosis of the humeral head. There is moderate to significant subchondral sclerosis and cystic change in the greater biceps tubero sity. 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 There is osteoarthritis in the glenohumeral joint as above. Moderate to significant rotator cuff tendon arthropathy.
--- NOTE | 2024-06-20 09:58 | CT_ITS ---
WS: [id number] CT ABDOMEN AND PELVIS WITH AND WITHOUT CONTRAST HISTORY: RECURRENT UTI TECHNIQUE: Unenhanced 5 mm axial imaging first performed through the abdomen. Post contrast imaging t hrough the abdomen and pelvis. Oral contrast has not been provided. Sagittal and coronal reformats a re submitted. All CT scans at [facility] use at least one of these dose optimization techniqu es: automated exposure control; mA and/or kV adjustment per patient size (includes targeted exams whe re dose is matched to clinical indication); or iterative reconstruction. CONTRAST: Omnipaque 350; 95 mL IV. DLP: 4241.70 mGy.cm COMPARISON: 11/11/2019. Lung bases are clear. Minimally enlarged heart. Small hiatal hernia. RIGHT kidney: 12.0 cm in length. 7 mm slightly hyperdense nodule from the anterior superior pole does not enhance. No calcifications or additional mass. No uroepithelial lesion or obstruction. Cortical calcification mid kidney. LEFT kidney: 11.4 cm in length. There are a few tiny cortical hypodensities which cannot be character ized further. Large parapelvic cysts distorting the calyces but no obstruction. No uroepithelial lesi ons. 2 mm calcification nonobstructing superior pole. 2 small to characterize hypodensity superior liver. Normal hepatic and portal veins. Variable density in the dependent gallbladder may be stones or sludge. No adrenal mass. Normal pancreas. Mild atheros clerosis aorta. Normal mesenteric arteries. No GI tract obstruction. Normal appendix. Mild distal diverticular disease without acute diverticulit is. No ascites or adenopathy. Ventral abdominal wall hernia contains fat only. Beam-hardening artifact in the pelvis secondary to patient's LEFT hip prosthesis. The artifact does o bscure detail in the pelvis. No significant distention of the urinary bladder. CT/CT abdomen pelvis wo/w [id number] IMPRESSION: 1. No renal obstruction or solid mass. 2. Large parapelvic cysts LEFT kidney with distortion of the calyces but no ob struction. 3. Nonobstructing 2 mm calcification LEFT kidney. 4. Cortical hypodensities within each kidney do not enhance. 5. Indeterminate for cholelithiasis. This can be further evaluated by ultrasou nd if thought necessary. 6. Ventral fat-containing abdominal wall hernia.
[2024-06-20 11:00] LABS: Blood Urea Nitrogen 21 mg/dL (8-23); Glomerular Filtration Rate 84.8 mL/min (90-130)
[2024-06-20] MEDS: iohexol 350 mg/mL 500 mL Btl (per mL) IV (11:06)
== END 2024-06-20 09:53 | disposition home or self-care (01) ==
LOC: RAD 09:53
PROVIDERS: Absent Provider Nurse Practitioner Family; PCP Family Medicine; Visit Provider Nurse Practitioner Family
DX: M19.011 Primary osteoarthritis, right shoulder (principal); N39.0 Urinary tract infection, site not specified; M25.711 Osteophyte, right shoulder; R93.89 Abnormal findings on diagnostic imaging of other specified body structures; N28.1 Cyst of kidney, acquired; N28.89 Other specified disorders of kidney and ureter; I51.7 Cardiomegaly; K44.9 Diaphragmatic hernia without obstruction or gangrene; I70.0 Atherosclerosis of aorta; R93.3 Abnormal findings on diagnostic imaging of other parts of digestive tract; K57.90 Diverticulosis of intestine, part unspecified, without perforation or abscess without bleeding; Z96.89 Presence of other specified functional implants
CPT/HCPCS: 73030; 74178; 82565; 84520

== ENCOUNTER 2024-08-23 08:40 | Outpatient (CLI) | payer BC, SELFPAY ==
[2024-08-23 09:46] LABS: Basophils % 0.6 %; Eosinophils # 0.1 10^3/uL (0.0-0.8); Eosinophils % 2.8 %; Hematocrit 36.9 % (36-47); Lymphocytes # 1.3 10^3/uL (0.8-4.8); Lymphocytes % 35.7 %; Mean Corpuscular HGB Conc 31.7 g/dL (30-55); Mean Corpuscular Hemoglobin 27.5 pg (27-33); Mean Corpuscular Volume 86.8 fl (85-98); Mean Platelet Volume 8.8 fL (7.4-10.4); Monocytes # 0.3 10^3/uL (0.2-0.9); Monocytes % 8.5 %; Neutrophils # 1.84 10^3/uL (1.8-7.7); Neutrophils % 52.1 %; Nucleated Red Blood Cells % 0 %; Platelet Count 187 10^3/cmm (157-399); Red Blood Count 4.25 10^6/uL (3.85-5.65); Red Cell Distribution Width 15.9 % (12.1-15.1); White Blood Count 3.53 10^3/uL (3.29-11.43)
[2024-08-23 09:55] LABS: Erythrocyte Sedimentation Rate 12 mm/hr (0-15)
[2024-08-23 10:14] LABS: Alanine Aminotransferase 11 U/L (0-33); Albumin Level 3.5 g/dL (3.5-5.2); Alkaline Phosphatase 78 U/L (35-105); Aspartate Amino Transferase 17 U/L (0-32); Chol HDL Ratio 2.27 mg/dL (0.0-4.40); Cholesterol 145 mg/dL (0-200); Globulin 2.5 g/dL (1.3-4.6); Glomerular Filtration Rate 101.3 mL/min (90-130); HDL Cholesterol 64 mg/dL (60-100); LDL Cholesterol Calculated 68 mg/dL (50-129); LDL HDL Ratio 1.06 RATIO (0.00-3.22); Total Bilirubin 0.4 mg/dL (0.15-1.2); Triglycerides 67 mg/dL (0-150)
== END 2024-08-23 08:41 | disposition home or self-care (01) ==
LOC: LAB 08:41
PROVIDERS: PCP Family Medicine; Visit Provider Internal Medicine Rheumatology
DX: R76.8 Other specified abnormal immunological findings in serum (principal); Z79.899 Other long term (current) drug therapy; I10 Essential (primary) hypertension
CPT/HCPCS: 36415; 80061; 80076; 82565; 85025; 85651; 86140

== ENCOUNTER 2024-09-07 00:32 | Emergency (ER) | payer BC, SELFPAY ==
[2024-09-07 00:34] VITALS: BP 187/110; PULSE 72; RESP 18; TEMP 36.5; O2SAT 98; BMI 40.6
--- NOTE | 2024-09-07 01:00 | CTR_ITS ---
PROCEDURE INFORMATION: Exam: CT Abdomen And Pelvis Without Contrast Exam date and time: 09/07/2024 2:03 AM Age: 63 years old Clinical indication: Abdominal pain; Flank; Lower; Additional info: Flank pain TECHNIQUE: Imaging protocol: Computed tomography of the abdomen and pelvis without contrast. Radiation optimization: All CT scans at this facility use at least one of these dose optimization techniques: automated exposure control; mA and/or kV adjustment per patient size (includes targeted exams where dose is matched to clinical indication); or iterative reconstruction. COMPARISON: CT abdomen pelvis wo/w [id number] 06/20/2024 10:58 AM RADIATION DOSE METRICS: Total DLP (mGy-cm): 1243.13 FINDINGS: Liver: Normal. No mass. Gallbladder and biliary ducts: There are multiple gallstones. No gallbladder wall thickening or pericholecystic fluid. Pancreas: Normal. No ductal dilation. Spleen: Normal. No splenomegaly. Adrenal glands: Normal. No mass. Kidneys and ureters: Bilateral nonobstructing nephrolithiasis. Left peripelvic renal cysts. There is moderate right hydronephrosis and hydroureter. Secondary to a 4 mm stone in the right distal ureter just proximal to the right UVJ. Stomach and bowel: Scattered colon diverticula. No inflammatory change identified involving the GI tract. No signs of bowel obstruction. Appendix: No evidence of appendicitis. Intraperitoneal space: Unremarkable. No free air. No significant fluid collection. Vasculature: Unremarkable. No abdominal aortic aneurysm. Lymph nodes: Unremarkable. No enlarged lymph nodes. Urinary bladder: Unremarkable as visualized. Reproductive: Unremarkable as visualized. Bones/joints: Multilevel degenerative changes involve the spine. The bone density is decreased. Postoperative changes from left total hip replacement. Soft tissues: Unremarkable. CT/CT kidney stone [id number] IMPRESSION: 1. Right obstructive uropathy secondary to a 4 mm stone involving the right distal ureter. 2. Bilateral nonobstructing nephrolithiasis.
--- NOTE | 2024-09-07 01:13 | W.ED.FEMALGU ---
HPI - Female Genitourinary General: Chief complaint: Urogenital-Female Stated complaint: Lower Back Pain Rt Side Time Seen by Provider: 09/07/24 00:47 History of Present Illness: 63-year-old female with a history of morbid obesity, anxiety and depression, gout, hypertension who presents to the emergency room with right flank pain. Radiates into her right groin. Said it started yesterday. She complains of severe pain. Says she has had some dysuria frequency and urgency. She has had nausea. She has a history of kidney stones. She says she had a renal scan done last week but has not received results. She had this done in [place] with Dr. Milton. No known fevers. Related Data Home Medications ?Medication ?Instructions ?Recorded ?Confirmed multivitamin,pe-ogun-jhgnvmtr 1 tab PO DAILY 11/15/19 09/05/24 (Complete Multivitamin tablet) magnesium 250 mg tablet 250 mg PO DAILY 01/11/20 09/05/24 biotin 5,000 mcg disintegrating 10,000 mcg PO DAILY 11/14/20 09/05/24 tablet niacin 100 mg tablet 100 mg PO DAILY 11/14/20 09/05/24 aspirin 81 mg capsule 81 mg PO DAILY 06/17/21 09/05/24 cetirizine 10 mg tablet (Zyrtec) 10 mg PO DAILY PRN 07/21/22 09/05/24 tirzepatide 10 mg/0.5 mL 3.33 mg SUBCUT .once weekly 01/06/24 09/05/24 subcutaneous pen injector Previous Rx's ?Medication ?Instructions ?Recorded carvedilol 25 mg tablet See Rx Instructions .Route 02/09/24 .COMPLEX #180 tabs allopurinol 100 mg tablet See Rx Instructions .Route 03/03/24 .COMPLEX #90 tabs meloxicam 15 mg tablet 15 mg PO DAILY PRN pain #90 tabs 04/21/24 Held on 08/29/24. Instructions: Doctor's Order omeprazole 40 mg capsule,delayed See Rx Instructions .Route 05/10/24 release .COMPLEX #90 caps fluoxetine 40 mg capsule See Rx Instructions .Route 05/30/24 .COMPLEX #90 caps fluoxetine 20 mg capsule See Rx Instructions .Route 06/02/24 .COMPLEX #90 caps gabapentin 300 mg capsule 300 mg PO .hs #90 caps 07/26/24 lisinopril 20 mg tablet See Rx Instructions .Route 08/09/24 .COMPLEX #90 tabs simvastatin 20 mg tablet (Zocor) 20 mg PO DAILY #90 tabs 08/23/24 leflunomide 20 mg tablet 20 mg PO DAILY #30 tabs 08/29/24 prednisone 20 mg tablet See Rx Instructions PO .COMPLEX 08/29/24 PRN joint pain flare #30 tabs cefdinir 300 mg capsule 300 mg PO BID 7 days #14 caps 09/07/24 hydrocodone 5 mg-acetaminophen 325 1 tab PO Q6H PRN pain #20 tabs 09/07/24 mg tablet ondansetron 8 mg disintegrating 8 mg PO Q6H #14 tabs 09/07/24 tablet polyethylene glycol 3350 17 17 g PO DAILY #510 grams 09/07/24 gram/dose oral powder (Miralax) tamsulosin 0.4 mg capsule (Flomax) 0.4 mg PO DAILY #30 caps 09/07/24 Allergies Allergy/AdvReac Type Severity Reaction Status Date / Time sulfamethoxazole (From AdvReac Mild Unknown Verified 09/05/24 10:22 Bactrim) trimethoprim (From Bactrim) AdvReac Mild Unknown Verified 09/05/24 10:22 Review of Systems Narrative: Constitutional symptoms: Negative except as documented in HPI. Skin symptoms: Negative except as documented in HPI. Eye symptoms: Negative except as documented in HPI. ENMT symptoms: Negative except as documented in HPI. Respiratory symptoms: Negative except as documented in HPI. Cardiovascular symptoms: Negative except as documented in HPI. Gastrointestinal symptoms: Negative except as documented in HPI. Genitourinary symptoms: Negative except as documented in HPI. Musculoskeletal symptoms: Negative except as documented in HPI. Neurologic symptoms: Negative except as documented in HPI. Psychiatric symptoms: Negative except as documented in HPI. Endocrine symptoms: Negative except as documented in HPI. PFSH ED PFSH: Medical History Immunization counseling High risk medication use Seropositive rheumatoid arthritis of multiple sites Morbid obesity Right distal ureteral calculus Anxiety and depression Gout Prediabetes Essential hypertension Surgical History Status post colonoscopy (07/24/21) H/O: knee surgery History of tonsillectomy Family History Other Cancer Dementia Hypertension Osteoarthritis Rheumatoid arthritis Sarcoma Denies family history of Diabetes CAD (coronary artery disease) Chronic kidney disease (CKD) Stroke Social History Smoking and tobacco/nicotine status: never used tobacco/nicotine Second hand smoke exposure: No Alcohol intake: never Substance/Drug Use: never Marital status: Current occupational status: retired Female Reproductive History: Spontaneous abortions: No Physical Exam Narrative: EXAM NARRATIVE: General: Alert, no acute distress. Skin: Warm, dry. Head: Normocephalic, atraumatic. Neck: Supple, trachea midline. Eye: Extraocular movements are intact. Ears, nose, mouth and throat: mucosa moist. Cardiovascular: Regular, Normal peripheral perfusion. Respiratory: Lungs are clear to auscultation, respirations are non-labored, breath sounds are equal, Symmetrical chest wall expansion. Gastrointestinal: Soft, right flank pain, Non distended Musculoskeletal: Normal ROM, no deformity. Neurological: Alert and oriented, No focal neurological deficit observed. Psychiatric: Cooperative, appropriate mood & affect. Course Vital Signs: Vital signs: Vital Signs Temperature 97.7 F 09/07/24 00:34 Pulse Rate 105 H 09/07/24 03:00 Respiratory Rate 18 09/07/24 00:34 Blood Pressure 148/87 09/07/24 03:00 Pulse Oximetry 93 09/07/24 03:00 MDM - Female Medical Decision Making Medical decision making: Differential diagnosis including but not limited to and based on the above HPI, review of systems and physical exam: Ureterolithiasis. Urinary tract infection. Appendicitis. Cholecystis. Musculoskeletal / back pain. Pyelonephritis Orders placed to evaluate differential diagnosis based on the above differential, HPI and physical exam Lab Review: Laboratory results were reviewed and interpreted by myself the emergency room physician. No leukocytosis. No anemia. BUN is elevated over baseline but her creatinine is at baseline. May indicate some dehydration. Urinalysis has 15-25 reds with greater than 100 whites and 4+ bacteria. Nitrate negative. CT of the abdomen pelvis with renal protocol: Right obstructive uropathy secondary to a 4 mm stone. Distal. Patient also has stones in the kidneys. This was reviewed and interpreted by myself the emergency room physician. I also reviewed the radiology report. I reviewed the patient's medical record. history of morbid obesity, anxiety and depression, gout, hypertension Reexamination: Patient's pain is finally relieved. She required 3 mg of Dilaudid and Toradol. Also some Zofran and fluids. Assessment and plan: Ureterolithiasis Dehydration ? 3 total milligrams of Dilaudid. 30 mg Toradol. 4 mg Zofran. Home with 2 doubleTwists pharmacy will not be open yet. - Discharged home - Discussed plan with patient. Answered any questions. - Evaluation and treatment of this problem were appropriate in the emergency setting. Lab Data 09/07/24 01:11 09/07/24 01:11 Radiology Impressions Abdomen/Pelvis CT 09/07/24 01:00 IMPRESSION: 1. Right obstructive uropathy secondary to a 4 mm stone involving the right distal ureter. 2. Bilateral nonobstructing nephrolithiasis. Laboratory Results WBC 11.06 10^3/uL (3.29-11.43) 09/07/24 01:11 RBC 4.60 10^6/uL (3.85-5.65) 09/07/24 01:11 Hgb 12.70 g/dL (11.27-16.99) 09/07/24 01:11 Hct 39.1 % (36-47) 09/07/24 01:11 MCV 85.0 fl (85-98) 09/07/24 01:11 MCH 27.6 pg (27-33) 09/07/24 01:11 MCHC 32.5 g/dL (30-55) 09/07/24 01:11 RDW 15.8 % (12.1-15.1) H 09/07/24 01:11 Plt Count 209 10^3/cmm (157-399) 09/07/24 01:11 MPV 8.7 fL (7.4-10.4) 09/07/24 01:11 Neut % (Auto) 72.1 % 09/07/24 01:11 Lymph % (Auto) 20.0 % 09/07/24 01:11 [place] % (Auto) 7.2 % 09/07/24 01:11 Eos % (Auto) 0.2 % 09/07/24 01:11 Baso % (Auto) 0.3 % 09/07/24 01:11 Neut # (Auto) 7.98 10^3/uL (1.8-7.7) H 09/07/24 01:11 Lymph # (Auto) 2.2 10^3/uL (0.8-4.8) 09/07/24 01:11 [place] # (Auto) 0.8 10^3/uL (0.2-0.9) 09/07/24 01:11 Eos # (Auto) 0.0 10^3/uL (0.0-0.8) 09/07/24 01:11 Baso # (Auto) 0.0 10^3/uL (0.0-0.1) 09/07/24 01:11 Nucleated RBC % (auto) 0 % 09/07/24 01:11 Nucleated RBCs # 0.0 /100WBC 09/07/24 01:11 Sodium 142 mmol/L (136-145) 09/07/24 01:11 Potassium 3.8 mmol/L (3.5-5.1) 09/07/24 01:11 Chloride 105 mmol/L (98-107) 09/07/24 01:11 Carbon Dioxide 26 mmol/L (22-29) 09/07/24 01:11 Anion Gap 14.8 (5-19) 09/07/24 01:11 BUN 34 mg/dL (8-23) H 09/07/24 01:11 Creatinine 0.8 mg/dL (0.5-0.9) 09/07/24 01:11 GFR Calculation 72.7 mL/min (90-130) L 09/07/24 01:11 Glucose 102 mg/dL (65-115) 09/07/24 01:11 Calculated Osmolality 302 mOsm/kg (285-295) H 09/07/24 01:11 Calcium 9.4 mg/dL (8.5-10.5) 09/07/24 01:11 Total Bilirubin 0.5 mg/dL (0.15-1.2) 09/07/24 01:11 AST 15 U/L (0-32) 09/07/24 01:11 ALT 14 U/L (0-33) 09/07/24 01:11 Alkaline Phosphatase 88 U/L (35-105) 09/07/24 01:11 Total Protein 7.0 g/dL (6.6-8.7) 09/07/24 01:11 Albumin 4.1 g/dL (3.5-5.2) 09/07/24 01:11 Globulin 2.9 g/dL (1.3-4.6) 09/07/24 01:11 Urine Color Yellow (Yellow) 09/07/24 00:52 Urine Appearance Cloudy (CLEAR) A 09/07/24 00:52 Urine pH 6.5 (5-7) 09/07/24 00:52 Ur Specific [place] 1.015 (1.005-1.030) 09/07/24 00:52 Urine Protein 2+ (Negative) H 09/07/24 00:52 Urine Glucose (UA) Norm (Normal) 09/07/24 00:52 Urine Ketones Negative (Negative) 09/07/24 00:52 Urine Blood 3+ (Negative) H 09/07/24 00:52 Urine Nitrate Negative (Negative) 09/07/24 00:52 Urine Bilirubin Neg (Negative) 09/07/24 00:52 Urine Urobilinogen 1 mg/dL (Negative) H 09/07/24 00:52 Ur Leukocyte Esterase 2+ (Negative) H 09/07/24 00:52 Urine RBC 15-25 /hpf (0-2) H 09/07/24 00:52 Urine WBC >100 /hpf (0-5) H 09/07/24 00:52 Ur Squamous Epith Cells 0-4 /hpf (0-5) H 09/07/24 00:52 Calcium Oxalate Crystal 5-10 /hpf H 09/07/24 00:52 Amorphous Sediment Not Reportable 09/07/24 00:52 Urine Bacteria 4+ /hpf (NONE) H 09/07/24 00:52 Urine Mucus 3+ /hpf 09/07/24 00:52 All radiology interpretation(s) finalized by discharge Discharge Plan Discharge Patient Disposition: Home Clinical Impression: Ureterolithiasis Condition: Stable Prescriptions: New hydrocodone-acetaminophen 5-325 mg tablet 1 tab PO Q6H PRN (Reason: pain) Qty: 20 0RF cefdinir 300 mg capsule 300 mg PO BID 7 Days Qty: 14 0RF tamsulosin [Flomax] 0.4 mg capsule 0.4 mg PO DAILY Qty: 30 0RF ondansetron 8 mg tablet,disintegrating 8 mg PO Q6H Qty: 14 0RF Rx Instructions: Take 1/2-1 tab every 6 hours as needed for nausea and vomiting polyethylene glycol 3350 [Miralax] 17 gram/dose powder 17 g PO DAILY Qty: 510 0RF Rx Instructions: Take 1 scoop daily while taking pain medications. No Action magnesium 250 mg tablet 250 mg PO DAILY niacin 100 mg tablet 100 mg PO DAILY biotin 5,000 mcg tablet,disintegrating 10,000 mcg PO DAILY Complete Multivitamin Tablet 1 tab PO DAILY bupivacaine (PF) 0.25 % (2.5 mg/mL) solution 2.5 mg intra-articular ONCE Qty: 1 0RF tirzepatide 10 mg/0.5 mL pen injector 3.33 mg SUBCUT .once weekly Rx Instructions: 20 units once weekly. cetirizine [Zyrtec] 10 mg tablet 10 mg PO DAILY PRN prednisone 20 mg tablet See Rx Instructions PO .COMPLEX PRN (Reason: joint pain flare) Qty: 30 1RF Rx Instructions: take 1 or 2 tab daily for up to 7 days as needed for arthritis flare PO PRN; leflunomide 20 mg tablet 20 mg PO DAILY Qty: 30 5RF lisinopril 20 mg tablet See Rx Instructions .ROUTE .COMPLEX Qty: 90 1RF Dose Instruction: TAKE 1 TABLET BY MOUTH EVERY DAY Rx Instructions: TAKE 1 TABLET BY MOUTH EVERY DAY carvedilol 25 mg tablet See Rx Instructions .ROUTE .COMPLEX Qty: 180 3RF Dose Instruction: TAKE 1 TABLET BY MOUTH TWICE DAILY Rx Instructions: TAKE 1 TABLET BY MOUTH TWICE DAILY allopurinol 100 mg tablet See Rx Instructions .ROUTE .COMPLEX Qty: 90 1RF Dose Instruction: take ONE tablet BY MOUTH daily Rx Instructions: take ONE tablet BY MOUTH daily meloxicam 15 mg tablet 15 mg PO DAILY PRN (Reason: pain) Qty: 90 1RF omeprazole 40 mg capsule,delayed release(DR/EC) See Rx Instructions .ROUTE .COMPLEX Qty: 90 0RF Dose Instruction: take 1 capsule BY MOUTH EVERY DAY Rx Instructions: take 1 capsule BY MOUTH EVERY DAY fluoxetine 40 mg capsule See Rx Instructions .ROUTE .COMPLEX Qty: 90 1RF Dose Instruction: take 1 capsule BY MOUTH EVERY DAY Rx Instructions: take 1 capsule BY MOUTH EVERY DAY fluoxetine 20 mg capsule See Rx Instructions .ROUTE .COMPLEX Qty: 90 1RF Dose Instruction: take 1 capsule BY MOUTH AT BEDTIME *take with 40mg dose* Rx Instructions: take 1 capsule BY MOUTH AT BEDTIME *take with 40mg dose* gabapentin 300 mg capsule 300 mg PO .hs Qty: 90 0RF simvastatin [Zocor] 20 mg tablet 20 mg PO DAILY Qty: 90 1RF aspirin 81 mg Capsule 81 mg PO DAILY Discharge Orders: Discharge ED (Routine); Ordered 09/07/24 Ordered By: Brooke Bridges Referrals: Tex Milton [Referring] - 4-7 days (Please call for follow-up appointment) Crissy Howell DO [Primary Care Provider] - Discharge Diet: Usual diet Discharge Activity: Increase activity as tolerated Patient Instructions: Opioid Safety, Pain Management Activity Restrictions/Additional Instructions: Call for appointment with urology. If fever (temp >100.4) develops return to the emergency room immediately, as this is an emergency. Take nausea medication prior to taking pain medications. Thank you for choosing [facility] for your healthcare needs today. Please realize this is an emergency room and that we are providing you with a medical screening exam and this may not be complete and all inclusive of all the testing and or work up that you may need to determine your ailment or severity of your illness. You have been screened and evaluated and felt safe for discharge. Health conditions do change or evolve sometimes and as such it is important that you follow up with your Primary Doctor to be re checked, 3-5 days is a general good time frame for follow up. You are always welcome to return to the ED for re assessment if your symptoms are worsening or you have new concerns Print Language: Croatian Coding Level of Care Code ED Charrer for Stormy Weaver
[2024-09-07 01:16] LABS: Basophils % 0.3 %; Eosinophils % 0.2 %; Hematocrit 39.1 % (36-47); Lymphocytes # 2.2 10^3/uL (0.8-4.8); Mean Corpuscular HGB Conc 32.5 g/dL (30-55); Mean Corpuscular Hemoglobin 27.6 pg (27-33); Mean Platelet Volume 8.7 fL (7.4-10.4); Monocytes # 0.8 10^3/uL (0.2-0.9); Monocytes % 7.2 %; Neutrophils # 7.98 10^3/uL (1.8-7.7); Neutrophils % 72.1 %; Nucleated Red Blood Cells % 0 %; Platelet Count 209 10^3/cmm (157-399); Red Cell Distribution Width 15.8 % (12.1-15.1); White Blood Count 11.06 10^3/uL (3.29-11.43)
[2024-09-07] MEDS: ondansetron 2 mg/ML SDV 2 mL 4 MG IVP (01:24)
[2024-09-07] MEDS: HYDROmorphone 0.5 MG/0.5 ML INJ 1 MG IVP ×2 (01:24→02:39)
[2024-09-07 01:50] LABS: Add Urine Microscopic? YES; Bacteria Urine 4+ /hpf; Bilirubin Urine Neg (Negative); Blood Urine 3+ (Negative); Glucose Urine UA Norm (Normal); Ketones Urine Negative (Negative); Leukocyte Esterase Urine 2+ (Negative); Nitrate Urine Negative (Negative); Protein Urine 2+ (Negative); RBC Urine 15-25 /hpf (0-2); Specific Gravity, Urine 1.015 (1.005-1.030); Squamous Epithelial Cell Urine 0-4 /hpf (0-5); Urine Appearance Cloudy (CLEAR); Urine Color Yellow (Yellow); Urobilinogen Urine 1 mg/dL (Negative); WBC Urine >100 /hpf (0-5); pH Urine 6.5 (5-7)
[2024-09-07 01:51] LABS: Add Urine Culture? Yes; Mucus Urine 3+ /hpf
[2024-09-07 01:57] LABS: Alanine Aminotransferase 14 U/L (0-33); Albumin Level 4.1 g/dL (3.5-5.2); Alkaline Phosphatase 88 U/L (35-105); Anion Gap 14.8 (5-19); Aspartate Amino Transferase 15 U/L (0-32); Blood Urea Nitrogen 34 mg/dL (8-23); Calcium 9.4 mg/dL (8.5-10.5); Carbon Dioxide 26 mmol/L (22-29); Chloride 105 mmol/L (98-107); Creatinine Clr Calc Pharmacy 103.1508; Globulin 2.9 g/dL (1.3-4.6); Glomerular Filtration Rate 72.7 mL/min (90-130); Glucose 102 mg/dL (65-115); Osmolality Calculated 302 mOsm/kg (285-295); Potassium 3.8 mmol/L (3.5-5.1); Sodium 142 mmol/L (136-145); Total Bilirubin 0.5 mg/dL (0.15-1.2)
[2024-09-07] MEDS: cefepime 2,000 mg SDV 2000 MG IVP (02:13)
[2024-09-07] MEDS: sodium chloride 0.9% 1,000 ML 999 ML IV (02:14)
[2024-09-07 02:17] VITALS: BP 207/100; PULSE 84; O2SAT 97
[2024-09-07] MEDS: ketorolac 30 mg/mL INJ IVP (02:39)
[2024-09-07 03:00] VITALS: BP 148/87; PULSE 105; O2SAT 93
[2024-09-07] MEDS: HYDROcodone-acetaminophen 5-325 mg Tablet 2 TAB PO (04:05)
[2024-09-07 04:07] VITALS: BP 148/87; PULSE 99; O2SAT 93
--- NOTE | 2024-09-07 04:09 | PC.NURSE ---
Two tabs of hydrocodone 5-325 sent home in bottle per MD Bridges. Medication instructions provided. Medication charted in med book.
== END 2024-09-07 04:00 | disposition home or self-care (01) ==
PROVIDERS: Emergency Provider Emergency Medicine; PCP Family Medicine
DX: N20.1 Calculus of ureter (principal); Z79.82 Long term (current) use of aspirin; I10 Essential (primary) hypertension
CPT/HCPCS: 74176; 80053; 81001; 85025; 87077; 87086; 87186; 96361; 96374; 96375; 96376; 99285; J0692; J1171; J1885; J2405; J7030; J9999

== ENCOUNTER 2024-10-28 10:22 | Outpatient (CLI) | payer BC, SELFPAY ==
[2024-10-28 11:01] LABS: Basophils % 0.2 %; Eosinophils # 0.1 10^3/uL (0.0-0.8); Eosinophils % 1.4 %; Hematocrit 39.4 % (36-47); Lymphocytes # 1.5 10^3/uL (0.8-4.8); Mean Corpuscular Hemoglobin 27.7 pg (27-33); Mean Corpuscular Volume 89.5 fl (85-98); Mean Platelet Volume 8.6 fL (7.4-10.4); Monocytes # 0.3 10^3/uL (0.2-0.9); Monocytes % 6.7 %; Neutrophils % 61.5 %; Nucleated Red Blood Cells % 0 %; Platelet Count 171 10^3/cmm (157-399); White Blood Count 5.04 10^3/uL (3.29-11.43)
[2024-10-28 11:03] LABS: Erythrocyte Sedimentation Rate 9 mm/hr (0-15)
[2024-10-28 11:23] LABS: Alanine Aminotransferase 14 U/L (0-33); Albumin Level 3.7 g/dL (3.5-5.2); Alkaline Phosphatase 68 U/L (35-105); Aspartate Amino Transferase 16 U/L (0-32); Globulin 2.9 g/dL (1.3-4.6); Glomerular Filtration Rate 84.8 mL/min (90-130); Total Bilirubin 0.5 mg/dL (0.15-1.2); Total Protein 6.6 g/dL (6.6-8.7)
== END 2024-10-28 10:23 | disposition home or self-care (01) ==
PROVIDERS: PCP Family Medicine; Visit Provider Internal Medicine Rheumatology
DX: Z79.899 Other long term (current) drug therapy (principal); M05.79 Rheumatoid arthritis with rheumatoid factor of multiple sites without organ or systems involvement
CPT/HCPCS: 36415; 80076; 82565; 85025; 85651; 86140

== ENCOUNTER → 2024-11-09 15:12 | Outpatient (BNVA) | payer BC, SELFPAY | PROVIDERS: PCP Family Medicine; Visit Provider Internal Medicine Rheumatology | DX: Z79.899 Other long term (current) drug therapy (principal) | CPT/HCPCS: 36415; 80076; 82565; 84550; 85025; 85651; 86140 ==

== ENCOUNTER 2024-12-19 14:35 | Outpatient (CLI) | payer BC, SELFPAY | END 2024-12-19 14:36 | disposition home or self-care (01) | LOC: SPT 14:44 | PROVIDERS: PCP Family Medicine; Visit Provider Orthopaedic Surgery | DX: Z46.89 Encounter for fitting and adjustment of other specified devices (principal); M17.0 Bilateral primary osteoarthritis of knee | CPT/HCPCS: 97760; L1852 ==

== ENCOUNTER → 2025-02-07 08:41 | Outpatient (BNVA) | payer BC, SELFPAY | PROVIDERS: PCP Family Medicine; Visit Provider Family Medicine | DX: N39.3 Stress incontinence (female) (male) (principal) | CPT/HCPCS: 81000 ==

== ENCOUNTER 2025-02-14 09:22 | Outpatient (CLI) | payer BC, SELFPAY ==
--- NOTE | 2025-02-14 09:40 | MM_ITS ---
WS: [id number] BILATERAL 3D TOMOSYNTHESIS DIGITAL SCREENING MAMMOGRAPHY WITH CAD CLINICAL INFORMATION: screening HISTORY: Screening mammogram. No current complaints. COMPARISON: 2023 TECHNIQUE: Bilateral CC and MLO views. FINDINGS: Scattered fibroglandular densities bilaterally. No suspicious focal mass, asymmetry, calcifications, or architectural distortion. No evidence of malignancy. A few incidental punctate calcifications. MM/MM scr tomosynthesis [id number] IMPRESSION: DENSITY: There are scattered areas of fibroglandular density. BI-RADS: 2 - Benign. FOLLOW UP: 1 Year Follow-up Recommend return to annual screening mammography.
== END 2025-02-14 09:23 | disposition home or self-care (01) ==
LOC: RAD 09:23
PROVIDERS: PCP Family Medicine; Visit Provider Family Medicine
DX: Z12.31 Encounter for screening mammogram for malignant neoplasm of breast (principal); R92.323 Mammographic fibroglandular density, bilateral breasts; R92.1 Mammographic calcification found on diagnostic imaging of breast
CPT/HCPCS: 77063; 77067

== ENCOUNTER 2025-03-07 10:37 | Outpatient (CLI) | payer BC, SELFPAY ==
--- NOTE | 2025-03-07 10:48 | XRR_ITS ---
PROCEDURE INFORMATION: Exam: XR Abdomen Exam date and time: 03/07/2025 10:55 AM Age: 64 years old Clinical indication: Condition or disease; Other: Bilateral nephrolithiasis TECHNIQUE: Imaging protocol: Radiologic exam of the abdomen. Views: Frontal supine view of the abdomen. 1 View. COMPARISON: CT kidney stone [id number] 09/07/2024 2:03 AM FINDINGS: Gastrointestinal tract: Degenerative changes of the lumbar spine and right hip. No bowel dilation. Bones/joints: Left hip replacement. Other findings: Faint calcifications project over each kidney and are likely intrarenal. XR/XR KUB [id number] IMPRESSION: Likely renal calculi.
== END 2025-03-07 10:38 | disposition home or self-care (01) ==
PROVIDERS: PCP Family Medicine; Visit Provider Urology
DX: N20.0 Calculus of kidney (principal); Z96.642 Presence of left artificial hip joint
CPT/HCPCS: 74018

== ENCOUNTER 2025-03-23 14:38 | Outpatient (CLI) | payer BC, SELFPAY ==
[2025-03-23 16:12] LABS: Glucose Urine UA Negative (Normal); Nitrate Urine Negative (Negative); Specific Gravity, Urine 1.020 (1.005-1.030)
== END 2025-03-23 14:39 | disposition home or self-care (01) ==
PROVIDERS: PCP Family Medicine; Visit Provider Orthopaedic Surgery
DX: N39.0 Urinary tract infection, site not specified (principal)
CPT/HCPCS: 81001; 87086

== ENCOUNTER → 2025-04-19 11:35 | Outpatient (BNVA) | payer BC, SELFPAY | PROVIDERS: PCP Family Medicine; Visit Provider Internal Medicine Rheumatology | DX: Z79.899 Other long term (current) drug therapy (principal); Z68.42 Body mass index [BMI] 45.0-49.9, adult; E66.01 Morbid (severe) obesity due to excess calories; M05.79 Rheumatoid arthritis with rheumatoid factor of multiple sites without organ or systems involvement | CPT/HCPCS: 36415; 80076; 82306; 82565; 85025; 85651; 86140; 86480; 86704; 86803; 87340 ==